=== PATIENT | female | born 1965 ===

== ENCOUNTER 2018-03-03 14:32 | Emergency (ER) | payer MEDICARE, BC ==
[2018-03-03 14:45] VITALS: BMI 22.1
[2018-03-03 14:52] VITALS: TEMP 100
--- NOTE | 2018-03-03 15:04 | C.PDOC ---
History Of Present Illness 52 y/o female presents to ED complaining of chronic left knee pain since yesterday. Patient states that yesterday she tripped and fell, landing on her left knee. Otherwise she denies any other physical injuries. Time Seen by Provider: 03/03/18 14:52 Chief Complaint (Nursing): Lower Extremity Problem/Injury History Per: Patient History/Exam Limitations: no limitations Onset/Duration Of Symptoms: Days Current Symptoms Are (Timing): Still Present Past Medical History Reviewed: Historical Data, Nursing Documentation, Vital Signs Vital Signs: Last Vital Signs Temp 100 F H 03/03/18 14:48 Pulse 114 H 03/03/18 14:48 Resp 17 03/03/18 14:48 BP 159/94 H 03/03/18 14:48 Pulse Ox 98 03/03/18 14:48 - Medical History PMH: Anemia, Anxiety, Depression, HTN, Multiple Sclerosis, Seizures, Chronic Pain Denies: Fractures, HIV, Chronic Kidney Disease Surgical History: No Surg Hx - [facility] Procedures INJECT STEROID (09/30/13) INTRODUCTION OF SERUM/TOX/VACCINE INTO MUSCLE, PERC APPROACH (06/05/17) OCCUPATIONAL THERAPY (09/30/13) PHYSICAL THERAPY NEC (09/30/13) Family History: States: No Known Family Hx - Social History Hx Alcohol Use: No Hx Substance Use: No - Immunization History Hx Tetanus Toxoid Vaccination: Yes (07/2016) Hx Influenza Vaccination: No Hx Pneumococcal Vaccination: Yes (05/2017) Review Of Systems Except As Marked, All Systems Reviewed And Found Negative. Musculoskeletal: Positive for: Other (L knee pain) Physical Exam - Physical Exam Appears: Non-toxic, No Acute Distress Skin: Warm, Dry, No Rash Head: Atraumatic, Normacephalic Eye(s): bilateral: Normal Inspection Oral Mucosa: Moist Neck: Supple Chest: Symmetrical Cardiovascular: Rhythm Regular, No Murmur Respiratory: Normal Breath Sounds, No Rales, No Rhonchi, No Wheezing Extremity: Tenderness (tenderness to palpation of L lateral knee), No Swelling Extremity: Bilateral: Normal Color And Temperature, Normal ROM Neurological/Psych: Oriented x3, Normal Speech, Normal Motor, Normal Sensation, Normal Reflexes ED Course And Treatment O2 Sat by Pulse Oximetry: 98 (RA) Pulse Ox Interpretation: Normal - Other Rad Left knee x-ray X-Ray: Read By Radiologist Interpretation: Findings: Mild medial and patellofemoral compartment joint space narrowing. Small suprapatellar joint effusion. No evidence of acute displaced fracture or dislocation. Impression: Mild medial and patellofemoral compartment joint space narrowing. Small suprapatellar joint effusion. No evidence of acute displaced fracture or dislocation. If pain persists, consider correlation with MRI. Medical Decision Making Medical Decision Making: Plan: --Left knee x-ray --Ibuprofen On re-evaluation, patient is resting comfortably and tolerating PO. Patient is seen ambulating in ED with steady gait assisted by a cane. Patient is instructed to follow up with Dr. Rg within 1-2 days for further evaluation. Disposition Counseled Patient/Family Regarding: Studies Performed, Diagnosis, Need For Followup, Rx Given - Disposition Referrals: Eben Rg III, MD [Staff Provider] - Disposition: HOME/ ROUTINE Disposition Time: 15:42 Condition: STABLE Additional Instructions: FOLLOW UP WITH PMD/ORTHOPEDIST IN 1-2 DAYS FOR RE-EVALUATION AND OFFICIAL XRAY REPORT. IF SYMPTOMS GET WORSE OR ANY NEW CONCERNING SYMPTOMS DEVELOP RETURN TO ED. Prescriptions: Ibuprofen [Motrin Tab] 1 tab PO Q6H PRN #15 tab PRN Reason: Pain, Moderate (4-7) Instructions: Knee Pain (DC) Forms: [facility] (Danish), General Discharge Instructions - Clinical Impression Clinical Impression: Knee pain, left - PA / SOCIETY EDITOR / Resident Statement MD/DO has reviewed & agrees with the documentation as recorded. - Scribe Statement The provider has reviewed the documentation as recorded by the Scribe Ana Pierce All medical record entries made by the Michaelaibsudhakar were at my direction and personally dictated by me. I have reviewed the chart and agree that the record accurately reflects my personal performance of the history, physical exam, medical decision making, and the department course for this patient. I have also personally directed, reviewed, and agree with the discharge instructions and disposition.
[2018-03-03 15:47] VITALS: BP 130/84; PULSE 96; RESP 16
--- NOTE | 2018-03-03 16:32 | RAD ---
Left knee three views HISTORY: Pain. Fall. COMPARISON: None available. Findings: Mild medial and patellofemoral compartment joint space narrowing. Small suprapatellar joint effusion No evidence of acute displaced fracture or dislocation. Impression: Mild medial and patellofemoral compartment joint space narrowing. Small suprapatellar joint effusion. No evidence of acute displaced fracture or dislocation. If pain persists, consider correlation with MRI.
[2018-03-03 18:19] VITALS: O2SAT 98
== END 2018-03-03 15:57 | disposition home or self-care (01) ==
LOC: C.ER 14:32
DX: M25.562 Pain in left knee (principal)